=== PATIENT | female | born 1990 | race Caucasian/White ===

== ENCOUNTER 2025-04-13 09:46 | Outpatient (RCR) | payer OTHER, SELFPAY ==
--- NOTE | 2025-04-27 07:46 | ONC.NURNOTE ---
Dx: Secondary Malignant Neoplasm of Lymph Node
== END 2025-10-10 23:59 | disposition home or self-care (01) ==
LOC: CCIC 09:46
PROVIDERS: Visit Provider Clinical Nurse Specialist
DX: C77.9 Secondary and unspecified malignant neoplasm of lymph node, unspecified (principal)
CPT/HCPCS: 99211